=== PATIENT | male | born 1995 | race Caucasian/White ===

== ENCOUNTER 2021-02-23 09:33 | Emergency (ER) | payer OTHER ==
[~2021-02-23] VITALS: Ht 190.5 cm; Wt 11.4 kg
--- NOTE | 2021-02-23 10:04 | NUR ---
PT C/O HEMORRHOID PAIN X 5-6 MONTHS, WORSENED OVER PAST FEW DAYS. HAS USED PRESCRIPTION HYDROCORTISONE SUPPOSITORIES (LAST DOSE: LAST WEEK) - STATES "I FELT LIKE THOSE WERE MAKING IT WORSE". BRIGHT RED BLOOD W/ BM'S. LAST BM: YESTERDAY. LAST ORAL INTAKE: 0730 BREAKFAST. IBUPROFEN 600MG AND OXYCODONE 5/325MG 1/2 TAB AT 0800. PAIN CURRENTLY 03/24.
[2021-02-23] MEDS ORDERED: OXYC1TAB12 PO (10:09)
[2021-02-23 10:13] VITALS: BP 133/83
== END 2021-02-23 10:25 | disposition home or self-care (01) ==
LOC: ED 10:20
DX: K64.4 Residual hemorrhoidal skin tags (principal)
CPT/HCPCS: 99283